=== PATIENT | male | born 1960 | race Caucasian/White ===

== ENCOUNTER → 2018-10-06 | Outpatient (CLI) | payer OTHER ==
[~2018-10-06] MED LIST: ACIPHEX 20 MG T20 MG PO; ALLOPURINOL 10100 M1 PO; AMLODIPINE BESY10 MG PO; ATENOLOL 50 MG50 M1 PO; ATORVASTATIN CA40 MG PO; BISACODYL SUPP10 MG RECTAL; CHLORTHALIDONE25 MG PO; CIPROFLOXACIN500 M1 PO; COLACE100 MG PO; COZAAR 50 MG TA50 M2 PO; COZAAR100 MG PO; ENALAPRIL MALE2.5 M1 PO; FISH OIL 1,0001 EAC5 PO; FLAGYL500 MG PO; HYDROCODONE-AP1 EAC6 PO; MULTIVITAMINS PO; NEURONTIN 300300 M1 PO; NORCO 5-325 TA1 EACH PO; ONDANSETRON ODT4 MG PO; PANTOPRAZOLE SO40 M1 PO; PERCOCET PO; PRAVACHOL80 MG PO; PREVACID; TENORMIN50 MG PO; TYLENOL325 MG PO; VASOTEC20 MG PO; VITAMIN D1000 UNI1 PO; XARELTO10 MG PO; ZOFRAN ODT4 MG PO
== END ==
LOC: CAT 14:01
DX: Z13.6 Encounter for screening for cardiovascular disorders (principal); I25.10 Atherosclerotic heart disease of native coronary artery without angina pectoris; E78.00 Pure hypercholesterolemia, unspecified

== ENCOUNTER → 2019-09-29 | Outpatient (CLI) | payer OTHER ==
[~2019-09-29] MED LIST changes: +ASA81BEC PO; +LIPITOR80 MG PO
== END ==
LOC: SJCVCIMAG 12:52
PROVIDERS: ATTEND Internal Medicine Cardiovascular Disease
DX: R06.00 Dyspnea, unspecified (principal); R93.1 Abnormal findings on diagnostic imaging of heart and coronary circulation

== ENCOUNTER 2019-10-18 10:37 | Day surgery (SDC) | payer OTHER ==
[2019-10-11 14:36] LABS: URINE BILIRUBIN NEGATIVE (Negative); URINE BLOOD NEGATIVE (Negative); URINE CLARITY CLEAR; URINE COLOR YELLOW; URINE GLUCOSE-RANDOM* NEGATIVE (Negative); URINE KETONES NEGATIVE (Negative); URINE LEUKOCYTES-REFLEX NEGATIVE (Negative); URINE NITRITE-REFLEX NEGATIVE (Negative); URINE PROTEIN (DIPSTICK) 2+ (Negative); URINE SPECIFIC GRAVITY 1.025 (1.005-1.035); URINE UROBILINOGEN 0.2 E.U./dl (0.2-1.0)
[2019-10-11 14:39] LABS: HEMATOCRIT 49.7 % (42.0-52.0); HEMOGLOBIN 16.4 gm/dL (14.0-18.0); MCH 30.9 pg (26.0-34.0); MCV 93.6 fL (80.0-100.0); RBC 5.31 mil/uL (4.50-6.00); RDW 14.7 % (10.5-14.5); WBC 9.2 thou/uL (4.0-11.0)
[2019-10-11 14:52] LABS: ALBUMIN 3.8 g/dL (3.4-5.0); BACTERIA-REFLEX None Seen /HPF (None Seen); CALCIUM 9.3 mg/dL (8.5-10.1); CREATININE 2.1 mg/dL (0.7-1.3); POTASSIUM 3.9 mmol/L (3.5-5.1); SQUAMOUS None Seen /LPF (0-3); URINE RBC None Seen /HPF (0-2); URINE WBC-REFLEX 0-5 Rare /HPF (0-5)
[2019-10-11 14:53] LABS: CASTS None Seen /LPF (None Seen); CRYSTALS None Seen /LPF (None Seen)
[2019-10-11 14:55] LABS: PROTIME 10.2 Seconds (9.3-11.4)
[~2019-10-18] VITALS: Ht 182.9 cm; Wt 122.2 kg
--- NOTE | ~2019-10-18 | O ---
[facility] [place] [address] OPERATIVE REPORT Name: CALI GARCIA Room #: DEP [facility]..#: [id number] Admission: 10/18/19 Attend Phys: Alvaro Barrett MD Discharge: 10/19/19 Date of : 60 Report #: [id number] THIS REPORT FOR: cc: Morenita Torres DNP, Mary E. DNP Abraham, Scott M. MD ~ CC: Morenita Barrett DATE OF SERVICE: 10/18/2019 PREOPERATIVE DIAGNOSIS: Left knee osteoarthritis. POSTOPERATIVE DIAGNOSIS: Left knee osteoarthritis. PROCEDURE: Left total knee arthroplasty with Navio robotic assistance. SURGEON: Alvaro Barrett MD EDGE BANDING OFF BEARER: Shanna Frazier PA-C. INDICATIONS FOR EDGE BANDING OFF BEARER: Throughout the case, extensive retraction and manipulation of the knee was required. This was afforded to me by my fast food assistant restaurant manager. ANESTHESIA: LMA with an adductor canal block. IMPLANTS: [employer]hew size 7 Journey II BCS Oxinium femur, size 5 tibia, size 10 constrained polyethylene and size 35 patella. TOURNIQUET TIME: 53 minutes. ESTIMATED BLOOD LOSS: 25 mL. COMPLICATIONS: None. SPECIMENS: None. CONDITION UPON LEAVING THE OPERATING ROOM: Stable. INDICATIONS FOR PROCEDURE: The patient is a 58-year-old gentleman with left knee osteoarthritis. He has failed conservative measures for this and after discussion with him, he elected for left total knee arthroplasty. DESCRIPTION OF PROCEDURE: Risks, benefits, alternatives, complications were discussed in detail with the patient including but not limited to risk of anesthesia, risk of damage to nerves, arteries, blood vessels, risk for [facility] [address] [place] [address] OPERATIVE REPORT Name: CALI GARCIA Room #: DEP [facility] M.R.#: [id number] Admission: 10/18/19 Attend Phys: Alvaro Barrett MD Discharge: 10/19/19 Date of : 60 Report #: [id number] infection, bleeding, risk for continued knee pain, need for reoperation. Informed consent was obtained from the patient. Left knee was appropriately marked in the preoperative holding area. IV Ancef was given for preoperative antibiotics. He was brought to the operating room and placed in supine position on operating room table. LMA anesthesia was induced without complication. Tourniquet was placed on the left thigh. Left lower extremity was prepped and draped in normal sterile fashion. Timeout was performed properly identifying the patient and procedure as well as the instrumentation and implants. All in the operating room were in agreement. Left lower extremity was exsanguinated, tourniquet was inflated. Tourniquet time was 53 minutes. Standard midline approach to knee was made with 10 blade through the skin. Dissection was taken down sharply to the fascia and deep flaps were developed medially and laterally. Fresh 10 blade was used to make a medial parapatellar arthrotomy and the knee was inspected. There was tricompartmental osteoarthritis. ACL and PCL were removed sharply. Reference pins were placed in the femur and the tibia. The knee was then digitally mapped using the Rdio robotic system. Intraoperative plan was made and we sized the size 7 femur and a size 5 tibia and a 10 spacer. After acceptance of the intraoperative plan, distal femoral cut was made with a Navio bur. Distal femoral cutting block was pinned in place and the chamfer cuts were made. Attention was turned to the tibia. Tibial resection guide was pinned in place using the Navio for placement. Tibial resection was made. Flexion and extension gaps were checked and found to have good balance in flexion and extension medially; however, there was some laxity laterally and it was felt we could make up for this with a constrained implant. Tibia was sized, found to be a size 5. A size 5 tibial trial was placed, pinned and punched. A size 7 femoral trial was placed and the box cut was made. This was then trialed with a size 10 constrained polyethylene. Knee was taken through range of motion, found to have 1-2 mm of laxity medially and laterally throughout range of motion. A 9 mm was resected from the posterior surface of the patella and a size 35 patellar trial button was placed. Knee was taken through range of motion, found to be stable, found to have good patellar tracking. Trial components were removed. Bony ends were thoroughly irrigated with normal saline. A final size 5 tibia, size 7 Journey II BCS Oxinium femur and a size 35 patella were cemented in place using standard cementation techniques. While the cement cured, a periarticular injection consisting of morphine, ropivacaine, epinephrine, Toradol was placed around the knee joint capsule. After the cement cured, the tourniquet was deflated. Hemostasis was obtained with Bovie cautery. Final size 10 constrained polyethylene was placed. A gram of vancomycin was placed deep in the joint. Fascia was closed with 0 Vicryl, skin was closed with 2-0 Vicryl, 3-0 Monocryl and Dermabond and a MADDY dressing was applied. The patient tolerated this procedure well and went to recovery room under care of anesthesia postoperatively. By: [id number] Alvaro Barrett MD /kiara
[2019-10-18 12:11] VITALS: BP 137/65
[2019-10-18 19:50] VITALS: BP 92/723
--- NOTE | 2019-10-18 20:21 | NUR ---
PATIENT ADMITTED FROM OR, LEFT TOTAL KNEE. MADDY DRESSING, POLAR PACK, KNEE HIGH JANA HOSE, SCD'S IN PLACE. PATIENT DENIES PAIN THIS SHIFT. PATIENT HAS RIGHT FOREARM IV WITH D51/2 NS AT 100CC/HR. AT [place]. ADMISSION DONE AND COMPLETED. WILL REPORT TO MIHAI/NORRIS.
--- NOTE | 2019-10-19 05:48 | NUR ---
RECIEVED CARE OF THIS PATIENT AT 1900. PATIENT ALERT AND ORIENTED X4. C/O PAIN. MED GIVEN. MADDY DRESSING ON L KNEE INTACT. HAS JANA RODRIGUES, SCD'S AND POLAR ICE ON L KNEE. SAT ON EDGE OF BED. IV IN R HAND WITH FLUIDS INFUSING. SLEPT OFF AND ON DURING NIGHT.
[2019-10-19 05:59] LABS: HEMATOCRIT 48.8 % (42.0-52.0); HEMOGLOBIN 15.9 gm/dL (14.0-18.0); MCH 30.9 pg (26.0-34.0); MCHC 32.6 g/dL (28.0-37.0); MCV 94.8 fL (80.0-100.0); RBC 5.15 mil/uL (4.50-6.00); RDW 14.4 % (10.5-14.5); WBC 15.7 thou/uL (4.0-11.0)
[2019-10-19 08:09] VITALS: BP 134/85
[2019-10-19 09:22] VITALS: BP 134/85
--- NOTE | 2019-10-19 16:08 | NUR ---
ASSESSMENT: CM REVIEWED CHART AND MET WITH PATIENT AT THE BEDSIDE. PT WAS A TOTAL KNEE. PT LIVES AT HOME WITH HIS IN A HOUSE. PT REPORTS ONE STEP TO ENTER AND NO STEPS HE HAS TO USE ONCE INSIDE. PT REPORTS HE PLANS ON USING CRUTCHES HE HAS AT HOME. PHYSICAL THERAPY SAW PATIENT AND HE IS SAFE TO DISCHARGE HOME WITH CRUTCHES. PT REPORTS HE ALREADY HAS OUTPT THERAPY SCHEDULED AT [place] FOR FRIDAY AT 11. PT REPORTS NO FURTHER NEEDS FROM CM.
== END 2019-10-19 12:37 | disposition home or self-care (01) ==
LOC: OR 10:37 → TBA 10:38 → OR 10:52 → 4S 15:48 → OR 10-19 12:37
PROVIDERS: ATTEND Orthopaedic Surgery
DX: M17.12 Unilateral primary osteoarthritis, left knee (principal); I12.9 Hypertensive chronic kidney disease with stage 1 through stage 4 chronic kidney disease, or unspecified chronic kidney disease; N18.9 Chronic kidney disease, unspecified; E78.00 Pure hypercholesterolemia, unspecified; K21.9 Gastro-esophageal reflux disease without esophagitis; F17.210 Nicotine dependence, cigarettes, uncomplicated; Z11.59 Encounter for screening for other viral diseases; Z98.890 Other specified postprocedural states; Z79.899 Other long term (current) drug therapy; Z88.8 Allergy status to other drugs, medicaments and biological substances
CPT/HCPCS: 10102; 50010; 50101; 50415; 50954; 51130; 51225; 51320; 52001; 53078; 54118; 55372; 56527; 56528; 57095; 57103; 57104; 57110; 57127; 57180; 62110; 62900; 64039; 64043; 70005

== ENCOUNTER 2020-07-19 09:11 | Emergency (ER) | payer OTHER ==
[~2020-07-19] VITALS: Ht 182.9 cm; Wt 117.9 kg
[2020-07-19 09:36] LABS: URINE BILIRUBIN NEGATIVE (Negative); URINE BLOOD NEGATIVE (Negative); URINE CLARITY CLEAR; URINE COLOR YELLOW; URINE GLUCOSE-RANDOM* NEGATIVE (Negative); URINE KETONES NEGATIVE (Negative); URINE LEUKOCYTES-REFLEX NEGATIVE (Negative); URINE NITRITE-REFLEX NEGATIVE (Negative); URINE PROTEIN (DIPSTICK) 2+ (Negative); URINE UROBILINOGEN 0.2 E.U./dl (0.2-1.0)
[2020-07-19 09:50] LABS: HYALINE CASTS 0-3 Few /LPF (None Seen); SQUAMOUS 0-3 Few /LPF (0-3)
[2020-07-19 09:51] LABS: BACTERIA-REFLEX None Seen /HPF (None Seen); CRYSTALS None Seen /LPF (None Seen); URINE RBC None Seen /HPF (0-2); URINE WBC-REFLEX None Seen /HPF (0-5)
[2020-07-19 10:28] LABS: ABSOLUTE NEUTROPHILS 5.3 thou/uL (1.4-8.2); EOSINOPHILS 4.9 % (0.0-3.0); HEMATOCRIT 53.9 % (42.0-52.0); HEMOGLOBIN 18.3 gm/dL (14.0-18.0); LYMPHOCYTES 23.5 % (24.0-44.0); MCH 32.1 pg (26.0-34.0); MCHC 33.9 g/dL (28.0-37.0); MCV 94.7 fL (80.0-100.0); MONOCYTES 8.6 % (1.0-8.0); PLATELET COUNT 230 thou/uL (150-400); RDW 15.2 % (10.5-14.5); WBC 8.6 thou/uL (4.0-11.0)
[2020-07-19 10:36] LABS: CALCIUM 9.5 mg/dL (8.5-10.1); CREATININE 2.1 mg/dL (0.7-1.3); POTASSIUM 4.5 mmol/L (3.5-5.1)
[2020-07-19 10:41] LABS: ALBUMIN 3.8 g/dL (3.4-5.0); TOTAL PROTEIN 7.5 g/dL (6.4-8.2)
[2020-07-19] MEDS ORDERED: MOBIC7.5 MG PO (13:07)
[2020-07-19] MEDS ORDERED: CEPHALEXIN500 MG PO (13:08)
[2020-07-19 13:50] VITALS: BP 110/55
== END 2020-07-19 13:51 | disposition home or self-care (01) ==
LOC: ER 09:11
PROVIDERS: Emergency Medicine
DX: N45.1 Epididymitis (principal); R10.31 Right lower quadrant pain; I10 Essential (primary) hypertension; E78.5 Hyperlipidemia, unspecified; F17.210 Nicotine dependence, cigarettes, uncomplicated; Z88.5 Allergy status to narcotic agent; Z79.82 Long term (current) use of aspirin; Z79.899 Other long term (current) drug therapy; Z96.652 Presence of left artificial knee joint; Z98.890 Other specified postprocedural states